=== PATIENT | male | born 1960 ===

== ENCOUNTER 2022-11-27 20:27 | Emergency (ER) | payer OTHER ==
[2022-11-27 21:16] LABS: ESTIMATED GFR 29 mL/min (>60)
[2022-11-27] MEDS: Sodium Chloride 0.9% 1,000 ML IV SCH ×3 (21:38→23:45)
[2022-11-27] MEDS: Insulin Regular, Human 100 Units/ML 3 ML Vial IV ONE ×2 (21:38→22:58)
[2022-11-28 09:03] VITALS: BP 161/81; PULSE 65
[2022-11-28] MEDS: metFORMIN 500 MG Tab PO SCH (12:50)
[2022-11-28] MEDS ORDERED: metFORMIN 1,000 MG Tab PO SCH (17:00)
[2022-11-28] MEDS ORDERED: metFORMIN 500 MG Tab.ER PO SCH (17:00)
== END 2022-11-28 09:35 | disposition home or self-care (01) ==
LOC: LB.ED 20:27
DX: E11.65 Type 2 diabetes mellitus with hyperglycemia (principal); E86.0 Dehydration; N17.9 Acute kidney failure, unspecified; I10 Essential (primary) hypertension; Z91.018 Allergy to other foods; Z79.4 Long term (current) use of insulin; Z79.899 Other long term (current) drug therapy
CPT/HCPCS: 36415; 80048; 80053; 80307; 81001; 82947; 85027; 96360; 96361; 99283; 99283-25; A9270-GY; J7030